=== PATIENT | female | born 1960 | race Caucasian/White ===

== ENCOUNTER 2018-12-10 15:37 | Inpatient (IN) | payer MEDICARE, OTHER ==
[~2018-12-10] VITALS: Ht 170.2 cm; Wt 123.5 kg
[~2018-12-10 15:37] MED LIST: ALPR.25 PO; CARI350 PO; CIPR500 PO; DIHY334CH PO; ESTMED1.5T PO; FLUO20 PO; HYDACE10B PO; HYDACE5 PO; NAPR500 PO; OMEP20ER PO; OMEP40CA12 PO; PHENY100ER PO; PROZAC20 MG PO; Percocet 10-321 EACH PO; ROLAIDS; SIME80CH PO; SOMA350 MG PO; VICODIN HP 10-1 EACH PO; Valium5 MG PO; [UNRECOGNIZED DRUG - CODE] PO
[2018-12-10 16:25] LABS: BASOPHILS ABSOLUTE AUTO 0.03 K/mm3 (0.00-0.23); BASOPHILS PERCENT AUTO 0 % (0-2); EOSINOPHILS ABSOLUTE AUTO 0.08 K/mm3 (0.00-0.68); EOSINOPHILS PERCENT AUTO 1 % (0-6); Hematocrit 42.8 % (33.0-51.0); Hemoglobin 13.3 g/dL (11.5-16.0); IMMATURE GRAN ABSOLUTE AUTO 0.04 K/mm3 (0.00-0.10); IMMATURE GRAN PERCENT AUTO 0 % (0-1); LYMPHOCYTES ABSOLUTE AUTO 1.41 K/mm3 (0.84-5.20); LYMPHOCYTES PERCENT AUTO 16 % (21-46); MONOCYTES ABSOLUTE AUTO 0.79 K/mm3 (0.16-1.47); MONOCYTES PERCENT AUTO 9 % (4-13); Mean Corpuscular HGB 29.5 pg (26.0-34.0); Mean Corpuscular HGB Conc 31.1 g/dL (31.5-36.5); Mean Corpuscular Volume 95 fL (80-100); Mean Platelet Volume 10.2 fL (9.1-12.4); NEUTROPHILS ABSOLUTE AUTO 6.65 K/mm3 (1.96-9.15); NEUTROPHILS PERCENT AUTO 74 % (41-73); Platelet Count 241 K/mm3 (150-400); RDW Coefficient Variation 13.2 % (11.7-14.2); RDW Standard Deviation 46.5 fL (35.1-46.3); Red Blood Cell Count 4.51 M/mm3 (3.80-5.20)
[2018-12-10 16:45] LABS: Alanine Aminotransfer (ALT/SGP 30 U/L (12-78); Albumin, Blood 3.2 g/dL (3.4-5.0); Albumin/Globulin Ratio 0.8 (0.8-1.8); Alk Phos 97 U/L (50-136); Anion Gap 3 mmol/L (6-16); Aspartate Aminotrans (AST/SGOT 16 U/L (12-37); Bilirubin, Total 0.4 mg/dL (0.1-1.0); Blood Urea Nitrogen 12 mg/dL (8-24); CO2, Blood 31 mmol/L (21-32); Chloride, Blood 102 mmol/L (98-108); Glomerular Filtration Rate >60 (60-); Glucose, Blood 107 mg/dL (70-99); Potassium, Blood 4.3 mmol/L (3.5-5.5); Sodium, Blood 136 mmol/L (136-145); Total Protein, Blood 7.2 g/dL (6.4-8.2); Troponin I <0.015 ng/mL (0.000-0.040)
[2018-12-10] MEDS ORDERED: Hydrocodone-Ap1 EA20 PO (18:45)
[2018-12-10] MEDS ORDERED: FOLGARD TABLET1 EACH PO (18:47)
[2018-12-10] MEDS ORDERED: ALBU90OI INH (18:47)
[2018-12-10] MEDS ORDERED: VP-VITE RX TAB1 EACH PO (18:47)
[2018-12-10] MEDS ORDERED: VITAMIN D31000 UNI2 PO (20:21)
[2018-12-11] MEDS ORDERED: TRAZ100 PO (00:34)
[2018-12-11 01:43] LABS: Adenovirus Not Detected (NOT DETECT); Bordetella pertussis Not Detected (NOT DETECT); Chlamydophila pneumoniae Not Detected (NOT DETECT); Coronavirus 229E Not Detected (NOT DETECT); Coronavirus HKU1 Not Detected (NOT DETECT); Coronavirus NL63 Not Detected (NOT DETECT); Coronavirus OC43 Not Detected (NOT DETECT); Human Metapneumovirus Not Detected (NOT DETECT); Human Rhinovirus/Enterovirus Detected (NOT DETECT); Influenza A Not Detected (NOT DETECT); Influenza A/2009-H1 Not Detected (NOT DETECT); Influenza A/H1 Not Detected (NOT DETECT); Influenza A/H3 Not Detected (NOT DETECT); Influenza B Not Detected (NOT DETECT); Mycoplasma pneumoniae Not Detected (NOT DETECT); Parainfluenza Virus 1 Not Detected (NOT DETECT); Parainfluenza Virus 2 Not Detected (NOT DETECT); Parainfluenza Virus 3 Not Detected (NOT DETECT); Parainfluenza Virus 4 Not Detected (NOT DETECT); Respiratory Syncytial Virus Not Detected (NOT DETECT)
[2018-12-11 03:24] LABS: BASOPHILS ABSOLUTE AUTO 0.01 K/mm3 (0.00-0.23); BASOPHILS PERCENT AUTO 0 % (0-2); EOSINOPHILS PERCENT AUTO 0 % (0-6); Hematocrit 40.3 % (33.0-51.0); Hemoglobin 12.8 g/dL (11.5-16.0); Mean Corpuscular HGB 29.2 pg (26.0-34.0); Mean Corpuscular HGB Conc 31.8 g/dL (31.5-36.5); Mean Platelet Volume 10.4 fL (9.1-12.4); Platelet Count 246 K/mm3 (150-400); RDW Coefficient Variation 13.2 % (11.7-14.2); RDW Standard Deviation 44.8 fL (35.1-46.3); Red Blood Cell Count 4.38 M/mm3 (3.80-5.20); White Blood Cell Count 9.86 K/mm3 (4.00-11.30)
[2018-12-11 03:27] LABS: IMMATURE GRAN ABSOLUTE AUTO 0.03 K/mm3 (0.00-0.10); IMMATURE GRAN PERCENT AUTO 0 % (0-1); LYMPHOCYTES ABSOLUTE AUTO 0.98 K/mm3 (0.84-5.20); LYMPHOCYTES PERCENT AUTO 10 % (21-46); MONOCYTES ABSOLUTE AUTO 0.14 K/mm3 (0.16-1.47); MONOCYTES PERCENT AUTO 1 % (4-13); Mean Corpuscular Volume 92 fL (80-100); NEUTROPHILS PERCENT AUTO 88 % (41-73)
[2018-12-11 03:43] LABS: Anion Gap 5 mmol/L (6-16); Blood Urea Nitrogen 15 mg/dL (8-24); Bun/Creatinine Ratio 17.7 (12.0-20.0); CO2, Blood 27 mmol/L (21-32); Calcium, Blood 8.5 mg/dL (8.5-10.1); Chloride, Blood 105 mmol/L (98-108); Creatinine, Blood 0.85 mg/dL (0.40-1.00); Glomerular Filtration Rate >60 (60-); Glucose, Blood 309 mg/dL (70-99); Potassium, Blood 4.5 mmol/L (3.5-5.5); Sodium, Blood 137 mmol/L (136-145)
--- NOTE | 2018-12-11 06:51 | NUR ---
ASSUMED CARE OF PATIENT AT APPROXIMATELY 2330 FROM ED [facility]. PATIENT ARRIVED TO UNIT VIA STRETCHER; TRANSFER VIA SBA FROM ED TO PCU STRETCHER. PATIENT ALERT AND ORIENTED X4. PATIENT REPORTS CHRONIC BACK PAIN RELIEVED WITH SCHEDULED NORCO. PATIENT COMPLAINS OF SOB; ESPECIALLY WHEN LAYING FLAT OR WITH LEGS UP; PATIENT SLEPT IN RECLINER ALL NIGHT. PATIENT VERY ANXIOUS AT TIMES; RESP PANEL COLLECTED AND SENT; [facility]. PATIENT'S IN ROOM BEDSIDE. NSR/ST ON TELE; OXYGEN SATURATION ABOVE 90% ON ROOM AIR; PATIENT REPORTS SHE USED TO WEAR A CPAP BUT NO LONGER CAN AFFORD TO RENT ONE. PATIENT TEARFUL AT TIMES REPORTING SHE CANT BELIEVE SHE NEEDS TO BE HOSPITALIZED. PIV S/L. SBP 150S. ADMISSION COMPLETE. PATIENT CURRENTLY SLEEPING IN BED; CALL LIGHT IN REACH; BED IN LOWEST POSISTION; BED ALARM ON; WILL CONTINUE TO MONITOR AND ASSESS UNTIL END OF SHIFT.
--- NOTE | 2018-12-11 08:00 | NUR ---
pt sitting up in the chair, spouce in room in her bed. a/ox3, cooperative with care, follows commands well, reports back pain about 4/10. lungs have insp wheezing and is very dim in bases, resp even and unlaobred, has a productive cough of yellow sputum, is on r/a, hrr, tele in place running sr per monitor, see strip, no edema noted, ppp+2, cap refill <3sec, vs stable, afebrile, iv site is clear and patent, btx4, abd flat soft nontender, voids without diff, skin c/w/d, maew, margaret, call light in reach.
--- NOTE | 2018-12-11 15:15 | NUR ---
pt is tearful, vs stable. talking about stopping smoking how she watched her mom from copd. xanax given. she is medical status and understands that she will likely change rooms today. call light in reach.
--- NOTE | 2018-12-11 16:24 | NUR ---
pt being transfered to medical 341 via wheelchair. report was given to Rama SALCEDO. isabel in attendence, all belongings went with pt.
--- NOTE | 2018-12-11 16:49 | NUR ---
PATIENT TRANSFERRED FROM PCU 4 TO ROOM 341. REPORTS RECIVED FROM MATIAS GILL. PATIENT ORIENTED TO ROOM AND USE OF CALL LIGHT. LUNGS DIMINISHED THROUGHOUT WITH SOME EXPITORY WHEEZES IN THE BASES. PATIENT CURRENTLY MAINTAINING SATS ON RA. AT BEDSIDE. UPDATED PATIENT ON PLAN OF CARE. PATIENT DENIES ANY NEEDS AT THIS TIME.
--- NOTE | 2018-12-12 04:39 | NUR ---
SHIFT SUMMARY PT HYPERTENSIVE AT TIMES THIS EVENING. THE HYPERTENSIVE EPISODES APPEAR TO BE ASSOCIATED WITH ANXIETY. WHEN PATIENT WAS WORKED UP OR OVER EXERTED HERSELF PT'S BLOOD PRESSURE WAS VERY ELEVATED WITH SYSTOLIC BP'S IN THE 180'S-190'S. PT BECAME SOB WITH MODERATE EXERTION. WHEN AMBULATING TO THE NURSE'S STATION AND BACK TO HER ROOM PT BECAME VERY SOB AND ANXIOUS. XANAX PER ORDERS EFFECTIVE IN HELPING WITH PT'S ANXIETY. PT REPORTED CHRONIC PAIN TO LOWER BACK AND R HIP. MEDICATED WITH SCHEDULED NORCO. PT SLEPT OFF AND ON, SLEEPING WELL AFTER MIDNIGHT UNTIL BEING WOKEN FOR A BREATHING TX EARLY IN THE AM. LUNG SOUNDS DIMINISHED AND TIGHT. NO WHEEZE NOTED THIS EVENING. PT REMAINED ON RA WITH O2 SATS GREATER THAN 90%. NO OTHER ACUTE CHANGES THIS SHIFT. WILL CONTINUE TO MONITOR.
[2018-12-12] MEDS ORDERED: GUAI600T33 PO (10:39)
[2018-12-12] MEDS ORDERED: PRED20 PO (10:40)
--- NOTE | 2018-12-12 10:50 | NUR ---
PATIENT D/C TO HOME WITH SPOUSE. RX MEDICATIONS CALLED INTO [facility]. D/C INSTRUCTIONS AND EDUCATION DISCUSSED WITH PATIENT AND COPY PROVIDED. PATIENT DENIES ANY FURTHER QUESTIONS OR CONCERNS.
== END 2018-12-12 10:50 | disposition home or self-care (01) | DRG 191 ==
LOC: ER 15:37 → PCU 15:38 → MEDS 12-11 16:36
PROVIDERS: Nurse Practitioner Acute Care; Physician Assistant; ADMIT Internal Medicine
DX: J44.0 Chronic obstructive pulmonary disease with (acute) lower respiratory infection (principal); Z68.41 Body mass index [BMI] 40.0-44.9, adult; J44.1 Chronic obstructive pulmonary disease with (acute) exacerbation; J20.6 Acute bronchitis due to rhinovirus; M19.90 Unspecified osteoarthritis, unspecified site; I10 Essential (primary) hypertension; F41.9 Anxiety disorder, unspecified; K21.9 Gastro-esophageal reflux disease without esophagitis; G47.33 Obstructive sleep apnea (adult) (pediatric); E66.9 Obesity, unspecified; F17.210 Nicotine dependence, cigarettes, uncomplicated; Z88.1 Allergy status to other antibiotic agents; Z88.5 Allergy status to narcotic agent
CPT/HCPCS: 0099U; 36415; 71046; 80048; 80053; 84484; 85025; 93005; 93010; 94640; 94644; 94667; 94760; 96361; 96365; 96367; 96375; 99285-25; J0360; J0456; J0696; J1650; J2930; J3475; J7030; J7050

== ENCOUNTER → 2019-07-14 | Outpatient (CLI) | payer MEDICARE, OTHER ==
[~2019-07-14] MED LIST changes: +ALBU90OI INH; +FOLGARD TABLET1 EACH PO; +GUAI600T33 PO; +Hydrocodone-Ap1 EA20 PO; +PRED20 PO; +TRAZ100 PO; +VITAMIN D31000 UNI2 PO; +VP-VITE RX TAB1 EACH PO
== END | disposition home or self-care (01) ==
LOC: LAB SHORT 16:59 → LAB 16:59
DX: L02.412 Cutaneous abscess of left axilla (principal); L53.8 Other specified erythematous conditions; L82.1 Other seborrheic keratosis; L85.3 Xerosis cutis; D22.61 Melanocytic nevi of right upper limb, including shoulder; D22.62 Melanocytic nevi of left upper limb, including shoulder; D22.5 Melanocytic nevi of trunk; D22.71 Melanocytic nevi of right lower limb, including hip; R20.8 Other disturbances of skin sensation
CPT/HCPCS: 87070; 87077; 87186; 87205

== ENCOUNTER → 2019-09-14 | Outpatient (CLI) | payer MEDICARE, OTHER ==
[2019-09-14 17:34] LABS: U Amphetamine Screen DETECTED; U Barbituate Screen Not Detected; U Benzodiazapine Screen Not Detected; U Buprenorphine Screen Not Detected; U Cannabinoids Screen Not Detected; U Cocaine Screen Not Detected; U Methadone Screen Not Detected; U Methamphetamine Screen Not Detected; U Opiates Screen DETECTED; U Oxycodone Screen Not Detected; U Phencyclidine Screen Not Detected; U Propoxyphene Screen Not Detected
== END | disposition home or self-care (01) ==
LOC: LAB SHORT 16:16 → LAB 16:16
PROVIDERS: Family Medicine
DX: Z51.81 Encounter for therapeutic drug level monitoring (principal); Z79.899 Other long term (current) drug therapy
CPT/HCPCS: G0480

== ENCOUNTER 2019-12-29 04:31 | Emergency (ER) | payer MEDICARE, OTHER ==
[~2019-12-29] VITALS: Ht 170.2 cm; Wt 108.9 kg
[2019-12-29] MEDS ORDERED: Prozac20 MG PO (04:46)
[2019-12-29 04:55] LABS: BASOPHILS ABSOLUTE AUTO 0.04 K/mm3 (0.00-0.23); BASOPHILS PERCENT AUTO 0 % (0-2); EOSINOPHILS ABSOLUTE AUTO 0.23 K/mm3 (0.00-0.68); EOSINOPHILS PERCENT AUTO 2 % (0-6); Hematocrit 44.7 % (33.0-51.0); Hemoglobin 14.3 g/dL (11.5-16.0); IMMATURE GRAN ABSOLUTE AUTO 0.03 K/mm3 (0.00-0.10); IMMATURE GRAN PERCENT AUTO 0 % (0-1); LYMPHOCYTES ABSOLUTE AUTO 3.32 K/mm3 (0.84-5.20); LYMPHOCYTES PERCENT AUTO 32 % (21-46); MONOCYTES ABSOLUTE AUTO 0.81 K/mm3 (0.16-1.47); MONOCYTES PERCENT AUTO 8 % (4-13); Mean Corpuscular HGB 28.8 pg (26.0-34.0); Mean Corpuscular Volume 90 fL (80-100); Mean Platelet Volume 10.2 fL (9.1-12.4); NEUTROPHILS ABSOLUTE AUTO 5.91 K/mm3 (1.96-9.15); NEUTROPHILS PERCENT AUTO 57 % (41-73); Platelet Count 268 K/mm3 (150-400); Red Blood Cell Count 4.96 M/mm3 (3.80-5.20); White Blood Cell Count 10.34 K/mm3 (4.00-11.30)
[2019-12-29 05:16] LABS: Alanine Aminotransfer (ALT/SGP 18 U/L (12-78); Albumin, Blood 3.3 g/dL (3.4-5.0); Albumin/Globulin Ratio 0.9 (0.8-1.8); Alk Phos 92 U/L (50-136); Anion Gap 5 mmol/L (6-16); Aspartate Aminotrans (AST/SGOT 9 U/L (12-37); Bilirubin, Total 0.4 mg/dL (0.1-1.0); Blood Urea Nitrogen 17 mg/dL (8-24); Bun/Creatinine Ratio 20.4 (12.0-20.0); CO2, Blood 27 mmol/L (21-32); Calcium, Blood 8.8 mg/dL (8.5-10.1); Chloride, Blood 107 mmol/L (98-108); Creatinine, Blood 0.84 mg/dL (0.40-1.00); Globulin, Blood 3.5 g/dL (2.2-4.0); Glomerular Filtration Rate >60 (60-); Glucose, Blood 141 mg/dL (70-99); Sodium, Blood 139 mmol/L (136-145); Total Protein, Blood 6.8 g/dL (6.4-8.2); Troponin I <0.015 ng/mL (0.000-0.040)
== END 2019-12-29 05:25 | disposition home or self-care (01) ==
LOC: ER 04:31
PROVIDERS: Emergency Medicine
DX: R07.9 Chest pain, unspecified (principal); F15.10 Other stimulant abuse, uncomplicated; R06.02 Shortness of breath; K21.9 Gastro-esophageal reflux disease without esophagitis; F41.9 Anxiety disorder, unspecified; E78.5 Hyperlipidemia, unspecified; J44.9 Chronic obstructive pulmonary disease, unspecified; F17.200 Nicotine dependence, unspecified, uncomplicated; Z79.899 Other long term (current) drug therapy; Z88.5 Allergy status to narcotic agent; Z91.09 Other allergy status, other than to drugs and biological substances; Z88.8 Allergy status to other drugs, medicaments and biological substances
CPT/HCPCS: 36415; 80053; 83690; 84484; 85025; 93005; 93010; 99285-25

== ENCOUNTER → 2020-06-04 | Outpatient (CLI) | payer MEDICARE ==
[~2020-06-04] MED LIST changes: +Prozac20 MG PO
[2020-06-07 07:10] LABS: COTININE Negative ng/mL (Cutoff=300)
== END | disposition home or self-care (01) ==
LOC: LAB SHORT 12:01 → OLS 12:01
PROVIDERS: Orthopaedic Surgery
DX: Z01.812 Encounter for preprocedural laboratory examination (principal); M16.11 Unilateral primary osteoarthritis, right hip

== ENCOUNTER → 2021-01-23 | Outpatient (CLI) | payer MEDICARE | END | disposition home or self-care (01) | LOC: LAB 17:45 → LAB SHORT 17:45 | DX: E11.59 Type 2 diabetes mellitus with other circulatory complications (principal) | CPT/HCPCS: 82043 ==

== ENCOUNTER 2021-03-05 09:31 | Day surgery (SDC) | payer MEDICARE ==
[~2021-03-05] VITALS: Ht 172.7 cm; Wt 100.7 kg
[~2021-03-05 09:31] MED LIST changes: +Adipex-P37.5 M1 PO; +HYDROCODONE APAP PO; -Hydrocodone-Ap1 EA20 PO; +METF500 PO; +[UNRECOGNIZED DRUG - OTHER] PO
--- NOTE | 2021-03-05 11:11 | NUR ---
[facility] in [facility] warming gown applied. Surgical site prepped with 2% Chlorhexidine cloth wipe. History, Chart, Medications and Allergies reviewed before start of procedure.Lungs clear T/O to Auscultation. Patient confirms NPO status and agrees with scheduled surgery. Pre-Op teaching done. Pt verbalizes understanding. Patient reports completing Chlorhexadine shower X2 prior to admission to hospital.
--- NOTE | 2021-03-05 18:14 | NUR ---
SHIFT SUMMARY PT ARRIVED TO UNIT A LITTLE BEFORE 1600, BUT WAS STILL ABLE TO WORK w/ THERAPY DESPITE RATING PAIN HIGH. PAIN BETTER POST THERAPY SESSION. EATING, DRINKING, VOIDING.
--- NOTE | 2021-03-06 03:56 | NUR ---
SHIFT SUMMARY: PATIENT IS AOX4, POD1, AQUACEL TO L ANTERIOR HIP C/D/I. AMBULATES TO THE BATHROOM USING A WALKER ON SBA WITHOUT ISSUES. DENIES LABORED BREATHING NOR DIZZINESS. EXPRESSES NEEDS VERY WELL & USES CALL LIGHT FOR HELP, CLWR. POWER COOLER PLACED. VASCULAR ACCESS TO RIGHT AC PATENT & INFUSING WELL, SALINE LOCKED. ON RA WITH O2 SAT ON THE 90S. EATING, DRINKING, VOIDING & SLEPT WELL. NO NEW ISSUES NOTED, WILL CONTINUE TO MONITOR.
[2021-03-06 04:49] LABS: BASOPHILS ABSOLUTE AUTO 0.03 K/mm3 (0.00-0.23); BASOPHILS PERCENT AUTO 0 % (0-2); EOSINOPHILS PERCENT AUTO 0 % (0-6); Hematocrit 40.7 % (33.0-51.0); Hemoglobin 12.8 g/dL (11.5-16.0); IMMATURE GRAN ABSOLUTE AUTO 0.08 K/mm3 (0.00-0.10); IMMATURE GRAN PERCENT AUTO 0 % (0-1); LYMPHOCYTES ABSOLUTE AUTO 1.99 K/mm3 (0.84-5.20); LYMPHOCYTES PERCENT AUTO 10 % (21-46); MONOCYTES ABSOLUTE AUTO 1.05 K/mm3 (0.16-1.47); MONOCYTES PERCENT AUTO 5 % (4-13); Mean Corpuscular HGB 29.1 pg (26.0-34.0); Mean Corpuscular HGB Conc 31.4 g/dL (31.5-36.5); Mean Corpuscular Volume 93 fL (80-100); Mean Platelet Volume 10.4 fL (9.1-12.4); NEUTROPHILS ABSOLUTE AUTO 16.26 K/mm3 (1.96-9.15); NEUTROPHILS PERCENT AUTO 84 % (41-73); Platelet Count 286 K/mm3 (150-400); RDW Coefficient Variation 12.9 % (11.7-14.2); RDW Standard Deviation 43.8 fL (35.1-46.3); White Blood Cell Count 19.41 K/mm3 (4.00-11.30)
[2021-03-06 05:03] LABS: Bun/Creatinine Ratio 26.2 (12.0-20.0); Calcium, Blood 9.2 mg/dL (8.5-10.1); Creatinine, Blood 1.03 mg/dL (0.40-1.00); Potassium, Blood 4.7 mmol/L (3.5-5.5)
--- NOTE | 2021-03-06 08:28 | NUR ---
03/06/21 0828 Josee Thakur VERIFICATIONS: EDIT CHART.
[2021-03-06] MEDS ORDERED: Percocet 5-3251 EACH PO (09:11)
[2021-03-06] MEDS ORDERED: ASPI81CH PO (09:11)
--- NOTE | 2021-03-06 11:09 | NUR ---
DISCARGE SUMMARY PATIENT ALERT AND ORIENTED. POD 1 R CHELA. AQUACEL C/D/I. TOLERATING ADA DIET AND FLUIDS. VOIDING WELL. CLEARED PHYSICAL THERAPY. WALKING FREQUENTLY WITH FWW. DISCHARGE ORDERS OBTAINED. DISCHARGE EDUCATION GIVEN ON NEW RXS, WOUND CARE, ACTIVITY, AND FOLLOW UP APPTS. IV DC'D WNL. PT LEFT UNIT AT 1105 VIA WHEELCHAIR FOR HOME.
== END 2021-03-06 11:01 | disposition home or self-care (01) ==
LOC: ORSCMMR 09:31 → ORD 11:00 → ORSCMMR 11:00 → ORD 12:30 → SURS 15:36 → ORSCMMR 03-06 11:01
PROVIDERS: Orthopaedic Surgery
PROC: 0SR90JZ Replacement of Right Hip Joint with Synthetic Substitute, Open Approach (ICD-10-PCS; principal; 2021-03-05 11:00)
DX: M16.12 Unilateral primary osteoarthritis, left hip (principal); M87.9 Osteonecrosis, unspecified; J44.9 Chronic obstructive pulmonary disease, unspecified; G47.33 Obstructive sleep apnea (adult) (pediatric); E11.9 Type 2 diabetes mellitus without complications; Z87.891 Personal history of nicotine dependence; M32.9 Systemic lupus erythematosus, unspecified; Z79.84 Long term (current) use of oral hypoglycemic drugs; Z79.899 Other long term (current) drug therapy
CPT/HCPCS: 36415; 72170; 80048; 82947; 85025; 97110-CQ; 97116-CQ; 97161; 97530; A9270; C1776; J0171; J0690; J0735; J1100; J1170; J1885; J2250; J2370; J2405; J2704; J2795; J3010; J7120